=== PATIENT | male | born 1980 | race Caucasian/White ===

== ENCOUNTER 2016-11-21 12:01 | Emergency (ER) | payer BC, OTHER ==
[~2016-11-21] VITALS: Ht 180.3 cm; Wt 78.0 kg
[2016-11-21 12:11] VITALS: Ht 180.3 cm; Wt 78.0 kg
[2016-11-21] MEDS ORDERED: BACITRACIN 0.9 GM OINT TOP ONE (13:00)
[2016-11-21] MEDS ORDERED: HYDROCODONE/APAP (5/325) TAB PO ONE (13:00)
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
--- NOTE | 2016-11-21 13:45 | RADRPT ---
PROCEDURE: XR Toe. CLINICAL INDICATION: Right great toe pain TECHNIQUE: Three views of the right great toe are available for review COMPARISON: No prior studies are available for comparison. FINDINGS: There is no evidence of acute fracture. Joint spaces are preserved. Soft tissues are grossly unrem arkable. IMPRESSION: 1. No radiographic evidence of acute osseous abnormality. RPTAT: UU .Rafael Valentino MD, MD Date Time Electronically viewed and signed by .Rafael Valentino MD, on 11/21/2016 13:45 .K/
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
[2016-11-21] MEDS ORDERED: HYDR-906 PO (14:03)
[2016-11-21] MEDS ORDERED: ACET500C5 PO (14:03)
[2016-11-21] MEDS ORDERED: NEOM1PAC TP (14:04)
[2016-11-21 14:21] VITALS: BP 132/78; PULSE 77; RESP 18; TEMP 98.1
== END 2016-11-21 14:22 | disposition home or self-care (01) ==
LOC: FTE 12:01
DX: S90.211A Contusion of right great toe with damage to nail, initial encounter (principal); S80.211A Abrasion, right knee, initial encounter; S80.212A Abrasion, left knee, initial encounter; S00.81XA Abrasion of other part of head, initial encounter; M25.511 Pain in right shoulder; V28.4XXA Motorcycle driver injured in noncollision transport accident in traffic accident, initial encounter
CPT/HCPCS: 70450; 71010; 73030; 73660; 99284; Z7610